=== PATIENT | female | born 1970 | race Caucasian/White ===

== ENCOUNTER 2016-11-20 06:02 | Observation (INO) | payer BC, OTHER ==
[~2016-11-20 06:02] MED LIST: Buffered Lidocaine 1% SYR 3ML* 3 ML/SYR SYRINGE INTRADERM ONE; Dexamethasone IV* 4 MG/ML 1 ML (4 MG) IV SLOW PU ONE; Famotidine IV* 10 MG/ML 2 ML (20 mg) IV ONE
[2016-11-20 06:41] LABS: Manual Entry Verification CAR0052; UR Preg Internal Control QC Line Present; UR Preg Kit Lot# 6060104
[2016-11-20] MEDS ORDERED: Famotidine IV* 10 MG/ML 2 ML (20 mg) ONE (07:05)
[2016-11-20] MEDS ORDERED: Dexamethasone IV* 4 MG/ML 1 ML (4 MG) ONE (07:05)
[2016-11-20] MEDS ORDERED: ceFOXitin 2 GM IVPREMIX* 2 GM/50 ML BAG ONE (07:05)
[2016-11-20] MEDS ORDERED: Midazolam* 1 MG/ML 5 ML VIAL (5 MG) ONE (07:19)
[2016-11-20] MEDS ORDERED: fentaNYL* 50 MCG/ML 5 ML VIAL (250 MCG VIAL) ONE (07:19)
[2016-11-20] MEDS ORDERED: Atracurium* 10 MG/ML 10 ML VIAL ONE (07:19)
[2016-11-20] MEDS ORDERED: VASOPRESSIN 20 UNITS/ML 1 ML VIAL ONE (07:20)
[2016-11-20] MEDS ORDERED: Ondansetron INJ* 2 MG/ML VIAL ONE (07:35)
[2016-11-20] MEDS ORDERED: Lidocaine 2% PF * 5 ML VIAL ONE (07:35)
[2016-11-20] MEDS ORDERED: Ketorolac INJ* 30 MG/ML 1 ML VIAL ONE (07:35)
[2016-11-20] MEDS ORDERED: Propofol* 10 MG/ML 20 ML BTL IV PUSH ONE (07:35)
[2016-11-20] MEDS ORDERED: Glycopyrrolate IV* 0.2 MG/ML 1 ML VIAL ONE (08:11)
[2016-11-20] MEDS ORDERED: fentaNYL* 50 MCG/ML 2 ML VIAL (100 MCG VIAL) IV PRN (08:26)
[2016-11-20] MEDS ORDERED: HYDROmorphone INJ* 1 MG/ML CARPUJECT SYRINGE IV PRN ×2 (08:26→10:36)
[2016-11-20] MEDS ORDERED: DiMENhydriNATE IV* 50 MG/ML VIAL IV PUSH PRN (08:26)
[2016-11-20] MEDS ORDERED: oxyCODONE/Acetamin 5/325 MG* TAB PO PRN ×2 (08:26→12:25)
[2016-11-20] MEDS ORDERED: Scopolamine 1.5 mg* PATCH TRANSDERM PRN (08:26)
[2016-11-20] MEDS ORDERED: Ondansetron INJ* 2 MG/ML VIAL IV PRN (08:26)
[2016-11-20] MEDS ORDERED: HYDROmorphone INJ* 1 MG/ML CARPUJECT SYRINGE ONE (09:39)
[2016-11-20] MEDS ORDERED: fentaNYL* 50 MCG/ML 2 ML VIAL (100 MCG VIAL) ONE (09:39)
[2016-11-20] MEDS ORDERED: Ibuprofen TAB* 600 MG ONE (11:40)
[2016-11-20 15:01] LABS: Hematocrit 37 % (35-47); Hemoglobin 12.3 g/dl (12.0-16.0)
[2016-11-20] MEDS: Ondansetron INJ* 2 MG/ML VIAL IV PRN ×2 (16:20→22:08)
[2016-11-20] MEDS: Ibuprofen TAB* 600 MG PO PRN (21:17)
--- NOTE | 2016-11-21 00:10 | OP ---
DATE OF OPERATION: 11/20/16 - ROOM #332 DATE OF : 70 SURGEON: Bruno Helton MD MISSILE CONTROL PILOT: Dr. Matos. ANESTHESIOLOGIST: Brandon Peterson MD ANESTHESIA: General PRE-OP DIAGNOSES: Menorrhagia, failed ablation. POST-OP DIAGNOSES: Menorrhagia, failed ablation, leiomyomata uteri. OPERATIVE PROCEDURE: FINDINGS: On exam under anesthesia, the cervix had second-degree prolapse. Vagina and vulva appeared normal. During the surgery, the right ovary was well visualized and left ovary less well visualized, but both appeared normal. Both fallopian tubes appeared normal. EBL: 100 cc. COMPLICATIONS: None. DESCRIPTION OF PROCEDURE: The patient identified, procedure identified as a total vaginal hysterectomy, possible bilateral salpingectomy. The patient was taken to the operating room and prepped and draped in the usual fashion in the dorsal lithotomy position under general anesthesia. Two single-tooth tenaculums were placed on the cervix and the cervix was injected with 15 cc of dilute Vasopressin solution 20 units in 100 at the cervicovaginal junction. A circumferential incision was made using the Bovie. The vagina was dissected cephalad. The cul-de-sac was entered via sharp dissection. The uterosacral ligaments were clamped, cut, and ligated. The cardinal ligaments were clamped, cut, and ligated. The vagina was dissected further cephalad. The broad ligaments were clamped using the LigaSure Impact bilaterally. The visceroperitoneal fold was entered via sharp dissection so that broad ligament was clamped, cut, and ligated using the LigaSure. The uterus was delivered through the incision. The ovarian ligaments were then clamped, cut, and ligated x2. Good hemostasis was verified. Both ovaries were visualized and the fallopian tubes were ligated using the LigaSure Impact and the fimbriated ends were excised. Good hemostasis was verified and a modified Rivero stitch was placed. Good hemostasis again verified and the vaginal cuff was closed using 0 Polysorb in a [id number] fashion. The Rivero stitch was tied down. Rascon catheter was placed with clear urine obtained. All sponge and instrument counts were correct and the patient returned to recovery room in stable condition. [id number]/[facility] #: [id number] [facility]
[2016-11-21] MEDS: Ibuprofen TAB* 600 MG PO PRN ×2 (03:29→09:46)
[2016-11-21 08:02] VITALS: BP 145/71
[2016-11-23] MEDS ORDERED: Scopolamine PATCH Remove* 1 NOTE MISC PATCH OFF ONE (08:27)
--- NOTE | 2017-08-19 01:25 | DS ---
DISCHARGE SUMMARY: ADMISSION DATE: 11/20/16 DATE OF DISCHARGE: 11/21/16 PREOPERATIVE DIAGNOSIS: Menorrhagia, failed ablation. POSTOPERATIVE DIAGNOSIS: Menorrhagia, failed ablation. PROCEDURE: Transvaginal hysterectomy and bilateral salpingectomy. COMPLICATIONS: None. PATHOLOGY: Showed uterus, bilateral fallopian tubes, uterine cervix with no abnormalities; uterine corpus with secretory endometrium and leiomyomata; bilateral fimbriated fallopian tubes had no significant pathological abnormality. The patient did well and went home on postoperative day #1. [id number]/[facility] #: [id number] [facility]
== END 2016-11-21 10:00 | disposition home or self-care (01) ==
LOC: INTOOBSV 06:02 → AA 06:02 → SSU 10:24
PROVIDERS: ADMIT Obstetrics & Gynecology; ATTEND Obstetrics & Gynecology
PROC: 0UTC7ZZ Resection of Cervix, Via Natural or Artificial Opening (ICD-10-PCS; 2016-11-20)
PROC: 0UT77ZZ Resection of Bilateral Fallopian Tubes, Via Natural or Artificial Opening (ICD-10-PCS; 2016-11-20)
PROC: 0UT97ZZ Resection of Uterus, Via Natural or Artificial Opening (ICD-10-PCS; principal; 2016-11-20 07:45)
DX: N92.0 Excessive and frequent menstruation with regular cycle (principal); D25.9 Leiomyoma of uterus, unspecified
CPT/HCPCS: 36415; 81025; 85014; 85018; 88307; 96374; A9270-GY; G0378; J0694; J1100; J1170; J1885; J2250; J2405; J2704; J3010